=== PATIENT | female | born 1955 | race Hispanic/Latino ===

== ENCOUNTER 2017-01-29 13:17 | Emergency (ER) | payer MEDICARE ==
[2017-01-29 13:22] VITALS: RESP 18; TEMP 98.3; O2SAT 95; BMI 25.1
--- NOTE | 2017-01-29 14:10 | ED PDOC ---
Arrival/HPI - General Chief Complaint: Back Pain Time Seen by Provider: 01/29/17 13:26 Historian: Patient, Other (Service professional from custodial) - History of Present Illness Narrative History of Present Illness (Text): The pt is a 61yo female, brought to the Emergency department for evaluation after the pt was seen choking on a pretzel. Pt is accompanied by a service professional from her custodial who provides most of the history; she reports the pt was eating pretzel and states the pt choked on a piece after which she immediately spit it up. The service professional states she witnessed the event and denies the pt turning blue or having difficulty breathing after the episode. She reports the pt was able to eat and drink normally after the episode and at present is at her baseline. Currently, the pt is complaining of some lower back pain as she presented to the ED. County Director states that she did not complain of back pain previously. No injuires reported Pt offers no additional medical complaints. 01/29/17 21:11 Time/Duration: Prior to Arrival Past Medical History - Provider Review Nursing Documentation Reviewed: Yes - Cardiac Hx Cardiac Disorders: No - Pulmonary Hx Respiratory Disorders: No - Neurological Hx Neurological Disorder: No - HEENT Hx HEENT Disorder: No - Renal Hx Renal Disorder: No - Endocrine/Metabolic Hx Endocrine Disorders: No - Hematological/Oncological Hx Blood Disorders: No Hx Blood Transfusions: No Hx Blood Transfusion Reaction: No - Integumentary Hx Dermatological Disorder: No - Musculoskeletal/Rheumatological Hx Musculoskeletal Disorders: No - Gastrointestinal Hx Gastrointestinal Disorders: No - Genitourinary/Gynecological Hx Genitourinary Disorders: No - Psychiatric Hx Psychophysiologic Disorder: Yes Hx Depression: Yes Hx Emotional Abuse: No Hx Physical Abuse: No Hx Substance Use: No - Surgical History Hx Eye Surgery: Yes - Anesthesia Hx Anesthesia Reactions: No Hx Malignant Hyperthermia: No Family/Social History - Physician Review Nursing Documentation Reviewed: Yes Family/Social History: Unknown Family HX Smoking Status: Never Smoked Hx Alcohol Use: No Hx Substance Use: No Allergies/Home Meds Allergies/Adverse Reactions: Allergies No Known Allergies Allergy (Verified 01/29/17 13:33) Home Medications: Home Meds Medication Instructions Recorded Confirmed Divalproex [Depakote] 250 mg PO QAM 02/25/12 01/29/17 Divalproex [Depakote] 500 mg PO QPM 02/25/12 01/29/17 Multivitamin [Multi Vitamins] 1 tab PO DAILY 02/25/12 01/29/17 Benztropine [Cogentin] 1 mg PO DAILY 01/29/17 01/29/17 Citalopram Hydrobromide [Celexa] 40 mg PO DAILY 01/29/17 01/29/17 Ketoconazole [Ketoconazole] 1 appful TOP .WEEKLY 01/29/17 01/29/17 Methylprednisolone [Medrol] 200 mg PO HS 01/29/17 01/29/17 Review of Systems - Review of Systems Constitutional: Normal ENT: absent: Sore Throat, Rhinorrhea, Epistaxis, Sinus Congestion Respiratory: absent: SOB, Cough Cardiovascular: absent: Chest Pain, RIVERO Gastrointestinal: absent: Abdominal Pain Musculoskeletal: Back Pain. absent: Neck Pain Skin: Normal. absent: Rash Neurological: absent: Headache, Focal Weakness Physical Exam - Physical Exam Narrative Physical Exam (Text): Head: Atraumatic. Normocephalic. Eyes: PERRL. EOMI. Conjunctivae are not pale. ENT: Mucous membranes are moist and intact. Oropharynx is clear and symmetric. No lacerations or edema noted. No drooling. No stridor. Neck: Supple. Full ROM. No JVD. No lymphadenopathy. No masses palpated. No crepitus. Cardiovascular: Regular rate. Regular rhythm. No murmurs, rubs, or gallops. Distal pulses are 2+ and symmetric. Pulmonary/Chest: No evidence of respiratory distress. Clear to auscultation bilaterally. No wheezing, rales or rhonchi. Back: No CVA tenderness. Extremities: Bilateral lower extremity edema. Skin: Skin is warm and dry. No petechiae. No purpura. Neurological: Alert, awake. Normal speech. No focal weakness. Psychiatric: At baseline mental status and behavior. Not agitated. History of form of MR reportedly in custodial. Vital Signs Reviewed: Yes Vital Signs Temp Pulse Resp BP Pulse Ox 01/29/17 14:20 78 18 117/65 95 01/29/17 13:21 98.3 F 80 18 115/69 95 Temperature: Afebrile Blood Pressure: Normal Respiratory Rate: Normal Appearance: Positive for: Well-Appearing, Non-Toxic, Comfortable Pain Distress: None Medical Decision Making ED Course and Treatment: Impression: 61yo female, brought for evaluation s/p an episode of choking which has resolved Plan: -- Choking episode has resolved. Witness describes no respiratory distress, states the pt immediately spit out the piece of pretzel she was choking on. On exam, pt with no distress. There is no history of aspiration or increased secretions. Patient has not had prior choking episodes. No cyanosis or respiratory distress described. -- Observe the pt for PO intake -- Reassess and disposition Progress Notes: Patient on re-evaluation now states no back pain. She has no oral lesions noted. No wheezing. No rhonchi. No history of choking episodes. Patient at this time is comfortable. With serial exams in ED she has remained asymptomatic. Denies any foreign body sensation or sore throat. No respiratory distress reported or observed in ED. 01/29/17 15:03 Pt observed in room and ate full meal without pain or discomfort. No pain, no stridor. Instructions provided to geochemistry teacher, informed to follow up immediately for any worsening or new symptoms. Discharge instructions provided directly to patient's geochemistry teacher from her custodial, at bedside. - Scribe Statement The provider has reviewed the documentation as recorded by the Abi Sims Provider Scribe Attestation: All medical record entries made by the Abi were at my direction and personally dictated by me. I have reviewed the chart and agree that the record accurately reflects my personal performance of the history, physical exam, medical decision making, and the department course for this patient. I have also personally directed, reviewed, and agree with the discharge instructions and disposition. Disposition/Present on Arrival - Present on Arrival Any Indicators Present on Arrival: No History of DVT/PE: No History of Uncontrolled Diabetes: No Urinary Catheter: No History of Decub. Ulcer: No History Surgical Site Infection Following: None - Disposition Have Diagnosis and Disposition been Completed?: Yes Diagnosis: Choking episode Disposition: HOME/ ROUTINE Disposition Time: 14:20 Patient Plan: Discharge Condition: GOOD Additional Instructions: Landy may return to her typical activities. For the next 24 hours, have patient on a softer diet. If she develops ANY symptoms, any bleeding, any sore throat, any cough, any shortness of breath, any chest pain, any change in behavior, any vomiting, any abdominal pain, ANY NEW SYMPTOMS, get rechecked immediately. Follow-up with her physician as needed. Referrals: PCP,NO [Primary Care Provider] - Follow up with primary Forms: [employer] (Hebrew)
[2017-01-29 14:20] VITALS: BP 117/65; PULSE 78
== END 2017-01-29 15:20 | disposition home or self-care (01) ==
LOC: ED 13:17
DX: R09.89 Other specified symptoms and signs involving the circulatory and respiratory systems (principal)

== ENCOUNTER 2018-08-10 18:22 | Inpatient (IN) | payer OTHER ==
[2018-08-10 18:53] VITALS: BMI 25.6
[2018-08-10] MEDS ORDERED: Sodium Chloride 0.9% 1,000 ML IV STA (18:57)
[2018-08-10 19:11] LABS: BASO # 0.01 K/mm3 (0.0-2.0); BASO % 0.1 % (0.0-3.0); EOS % 0.3 % (1.5-5.0); HEMOGLOBIN 11.8 g/dL (12.0-16.0); LYMPH # 0.6 (1.2-3.4); LYMPH % 8.2 % (22.0-35.0); MEAN CELL VOLUME 97.5 fl (80.0-105.0); MEAN CORPUSCULAR HEMOGLOBIN 33.4 pg (25.0-35.0); MEAN CORPUSCULAR HGB CONC 34.3 g/dl (31.0-37.0); MEAN PLATELET VOLUME 8.2 fl (7.0-11.0); MONO # 1.3 (0.1-0.6); MONO % 17.2 % (1.0-6.0); RBC 3.53 10^6/uL (3.5-6.1); RED CELL DISTRIBUTION WIDTH 12.2 % (11.5-14.5); WHITE BLOOD COUNT 7.8 10^3/uL (4.5-11.0)
[2018-08-10 19:12] LABS: VENOUS BLOOD GAS BASE EXCESS 9.7 mmol/L (0.0-2.0); VENOUS BLOOD GAS PO2 30 mm/Hg (30-55); VENOUS BLOOD PH 7.49 (7.32-7.43)
[2018-08-10 19:32] LABS: ALB/GLOB RATIO 1.1 (1.1-1.8); ALBUMIN 3.8 g/dL (3.0-4.8); ALT/SGPT 30 U/L (7-56); AST/SGOT 52 U/L (14-36); BLOOD UREA NITROGEN 19 mg/dL (7-21); CALCIUM 8.5 mg/dL (8.4-10.5); GFR NON-AFRICAN AMERICAN 56
[2018-08-10 19:34] LABS: INR 1.2; PARTIAL THROMBOPLASTIN TIME 34.5 Seconds (26.9-38.3); PROTHROMBIN TIME 13.3 SECONDS (9.4-12.5)
[2018-08-10 19:44] LABS: B-TYPE NATRIURETIC PEPTIDE 204 pg/mL (0-450); TROPONIN I < 0.01 ng/mL
[2018-08-10] MEDS ORDERED: levoFLOXacin 750 mg in D5W 750 MG/150 ML BAG IVPB STA (19:51)
--- NOTE | 2018-08-10 20:08 | ED PDOC ---
Arrival/HPI - General Chief Complaint: Dizziness/Lightheaded Time Seen by Provider: 08/10/18 18:37 - History of Present Illness Narrative History of Present Illness (Text): 08/10/18 20:04 62 yo female, hx of seizures, from detention, comes from detention for "change in mental status", and "not acting herself". caretake bedside notes worsening cough. no fevers noted at detention although pt is noted to be febrile in ed. in er, pt denies any complaints. Past Medical History - Cardiac Hx Cardiac Disorders: Yes Hx Hypertension: Yes - Pulmonary Hx Respiratory Disorders: No - Neurological Hx Neurological Disorder: No - HEENT Hx HEENT Disorder: No - Renal Hx Renal Disorder: No - Endocrine/Metabolic Hx Endocrine Disorders: No - Hematological/Oncological Hx Blood Disorders: No Hx Blood Transfusions: No Hx Blood Transfusion Reaction: No - Integumentary Hx Dermatological Disorder: No - Musculoskeletal/Rheumatological Hx Musculoskeletal Disorders: No - Gastrointestinal Hx Gastrointestinal Disorders: No - Genitourinary/Gynecological Hx Genitourinary Disorders: No - Psychiatric Hx Psychophysiologic Disorder: Yes Hx Schizophrenia: Yes Hx Substance Use: No Other/Comment: Developmentally delayed. - Surgical History Hx Eye Surgery: Yes Hx Tonsillectomy: Yes - Anesthesia Hx Anesthesia: Yes Hx Anesthesia Reactions: No Hx Malignant Hyperthermia: No Family/Social History Family/Social History: Unknown Family HX Smoking Status: Never Smoked Hx Alcohol Use: No Hx Substance Use: No Allergies/Home Meds Allergies/Adverse Reactions: Allergies No Known Allergies Allergy (Verified 08/11/18 12:40) Home Medications: Home Meds Medication Instructions Recorded Confirmed RX: Divalproex [Depakote DR 250 mg PO QAM 02/25/12 08/10/18 (*BID*)] RX: Divalproex [Depakote DR(*BID*)] 500 mg PO QPM 02/25/12 08/11/18 RX: Multivitamin [One Daily 1 tab PO DAILY 02/25/12 08/10/18 Multivitamin] RX: Benztropine [Cogentin] 1 mg PO DAILY 01/29/17 08/10/18 RX: Citalopram Hydrobromide 40 mg PO DAILY 01/29/17 08/10/18 [Celexa] RX: Ketoconazole 1 appful TOP .WEEKLY 01/29/17 08/11/18 RX: Hydrochlorothiazide [Microzide] 25 mg PO DAILY 08/10/18 08/10/18 RX: Clotrimazole 1% Cream 1 % TP BID 08/11/18 08/11/18 [Lotrimin 1%] RX: Fluconazole [Diflucan] 150 mg PO MON 08/11/18 08/11/18 RX: Fluocinonide 0.05% Cream 15 gm TOP BID 08/11/18 08/11/18 [Lidex 0.05% Cream] RX: Thioridazine HCl 200 mg PO HS 08/11/18 08/11/18 Review of Systems - Review of Systems Constitutional: Fevers Eyes: Normal ENT: Normal Respiratory: Cough Cardiovascular: Normal Gastrointestinal: Normal Genitourinary Female: Normal Musculoskeletal: Normal Skin: Normal Neurological: Normal Endocrine: Normal Hemo/Lymphatic: Normal Psychiatric: Normal Physical Exam Vital Signs Temp Pulse Resp BP Pulse Ox 08/10/18 18:55 100.8 F H 08/10/18 18:44 97.9 F 89 18 114/64 95 Temperature: Febrile Blood Pressure: Normal Pulse: Regular Respiratory Rate: Normal Appearance: Positive for: Well-Appearing, Non-Toxic, Comfortable Pain Distress: None Mental Status: Positive for: Alert and Oriented X 3 - Systems Exam Head: Present: Atraumatic, Normocephalic Pupils: Present: PERRL Extroacular Muscles: Present: EOMI Conjunctiva: Present: Normal Mouth: Present: Moist Mucous Membranes Nose (Internal): No: Normal Inspection, No Active Bleeding, Moist, Engorged, Edematous, Boggy, Clear Mucous, Rhinorrhea, Purulent Mucous, Septal Deviation, Septal Hematoma, Epistaxis, Other Neck: Present: Normal Range of Motion Respiratory/Chest: Present: Clear to Auscultation, Good Air Exchange. No: Respiratory Distress, Accessory Muscle Use Cardiovascular: Present: Regular Rate and Rhythm, Normal S1, S2. No: Murmurs Abdomen: No: Tenderness, Distention, Peritoneal Signs Back: Present: Normal Inspection Upper Extremity: Present: Normal Inspection. No: Cyanosis, Edema Lower Extremity: Present: Normal Inspection. No: Edema Neurological: Present: GCS=15, CN II-XII Intact, Speech Normal Skin: Present: Warm, Dry, Normal Color. No: Rashes Psychiatric: Present: Alert, Oriented x 3, Normal Insight, Normal Concentration Medical Decision Making ED Course and Treatment: 08/10/18 20:09 ro pna, sepsis, metabolic abnormality noted hyponatremia ivf initated. no wbc no la, cxr no focal infiltrate. 08/13/18 09:[address] paris. ua pending - Lab Interpretations Lab Results: pO2 30 mm/Hg (30-55) 08/10/18 19:00 VBG pH 7.49 (7.32-7.43) H 08/10/18 19:00 VBG pCO2 45.0 (40-60) 08/10/18 19:00 VBG HCO3 34.3 mmol/l (21-28) H 08/10/18 19:00 VBG Total CO2 35.7 mmol.L (22-28) H 08/10/18 19:00 VBG O2 Sat (Calc) 71.2 % (40-65) H 08/10/18 19:00 VBG Base Excess 9.7 mmol/L (0.0-2.0) H 08/10/18 19:00 VBG Potassium 3.9 mmol/L (3.6-5.2) 08/10/18 19:00 Sodium 128.0 mmol/L (132-148) L 08/10/18 19:00 Chloride 92.0 mmol/L (98-107) L 08/10/18 19:00 Glucose 113 mg/dl (65-105) H 08/10/18 19:00 Lactate 1.2 mmol/L (0.7-2.1) 08/10/18 19:00 FiO2 21.0 % 08/10/18 19:00 PT 13.3 SECONDS (9.4-12.5) H 08/10/18 19:20 INR 1.20 08/10/18 19:20 APTT 34.5 Seconds (26.9-38.3) 08/10/18 19:20 Troponin I < 0.01 ng/mL 08/10/18 19:22 NT-Pro-B Natriuret Pep 204 pg/mL (0-450) 08/10/18 19:22 Total Bilirubin 0.4 mg/dL (0.2-1.3) 08/10/18 19:22 AST 52 U/L (14-36) H 08/10/18 19:22 ALT 30 U/L (7-56) 08/10/18 19:22 Alkaline Phosphatase 80 U/L (38-126) 08/10/18 19:22 Total Protein 7.2 g/dL (5.8-8.3) 08/10/18 19:22 Albumin 3.8 g/dL (3.0-4.8) 08/10/18 19:22 Globulin 3.4 gm/dL 08/10/18 19:22 Albumin/Globulin Ratio 1.1 (1.1-1.8) 08/10/18 19:22 - RAD Interpretation Radiology Orders: 08/10/18 18:49 CHEST PORTABLE [RAD] Stat - Medication Orders Current Medication Orders: Levofloxacin/Dextrose (Levaquin 750mg) 750 mg in 150 mls @ 100 mls/hr IVPB STAT STA; Protocol Stop: 08/10/18 21:20 Discontinued Medications Acetaminophen (Tylenol 325mg Tab) 975 mg PO STAT STA Stop: 08/10/18 18:58 Sodium Chloride (Sodium Chloride 0.9%) 1,000 mls @ 999 mls/hr IV .Q1H1M STA Stop: 08/10/18 19:57 Disposition/Present on Arrival - Present on Arrival Any Indicators Present on Arrival: No History of DVT/PE: No History of Uncontrolled Diabetes: No Urinary Catheter: No History of Decub. Ulcer: No History Surgical Site Infection Following: None - Disposition Have Diagnosis and Disposition been Completed?: Yes Diagnosis: UTI (urinary tract infection), Hyponatremia Disposition: HOSPITALIZED Disposition Time: 14:00 Condition: STABLE
[2018-08-11] MEDS: Sodium Chloride 0.9% 1,000 ML IV SCH ×2 (00:08→11:50)
[2018-08-11 01:56] LABS: URINE BILIRUBIN NEGATIVE (NEGATIVE); URINE BLOOD MODERATE (NEGATIVE); URINE GLUCOSE (UA) NEGATIVE (NEGATIVE); URINE LEUKOCYTE ESTERASE TRACE Leu/uL (NEGATIVE); URINE PROTEIN NEGATIVE mg/dL (<30 mg/dL); URINE UROBILINOGEN 0.2 E.U./dL (<1 E.U./dL)
[2018-08-11 01:59] LABS: URINE APPEARANCE CLEAR (CLEAR); URINE COLOR YELLOW (YELLOW)
[2018-08-11 02:18] LABS: URINE EPITHELIAL CELLS 0 - 2 /hpf (0-5); URINE RBC 0 - 2 /hpf (0-2)
[2018-08-11 02:19] LABS: URINE BACTERIA MOD /hpf
--- NOTE | 2018-08-11 08:56 | RAD ---
Date of service: 08/10/2018 HISTORY: cough COMPARISON: No prior. FINDINGS: LUNGS: There are low lung volumes. There is mild pulmonary venous congestion PLEURA: No pleural effusions or pneumothorax. CARDIOVASCULAR: The heart is normal in size. No aortic atherosclerotic calcifications present. OSSEOUS STRUCTURES: Within normal limits for the patient's age. VISUALIZED UPPER ABDOMEN: Normal. OTHER FINDINGS: None. IMPRESSION: Low lung volumes may be related to poor inspiratory effort. Mild pulmonary venous congestion.
[2018-08-11] MEDS: Divalproex 250 mg DR (BID formulation) PO SCH (10:26)
--- NOTE | 2018-08-11 10:27 | CP.PCM.CON ---
<Branden Velasquez - Last Filed: 08/11/18 12:26> History of Present Illness - History of Present Illness History of Present Illness: ID Consult Note 62 year old female with past medical history of seizure and HTN presents to the hospital for presyncopal episode. Patient is with home tax compliance manager who provides medical history. Patient was talking and became dizzy, home service demonstrator caught her before she fell. Patient also displayed labored breathing during this time and home tax compliance manager called EMS. Patient states she currently does not have any complaints, although she is a poor historian. Patient does attend adult day care during the day. Denies chest pain, shortness of breath, nausea, vomiting, d iarrhea, fever, chills, body aches, dysuria, numbness, tingling. Medical Hx: As above Surgical Hx: Denies Family Hx: CAD, gastric cancer Social Hx: Denies alcohol, tobacco, and illicit drug use Medication: Reviewed, as per MAR Allergies: NKDA Review of Systems - Review of Systems Review of Systems: 12 point ROS as per HPI, otherwise negative Past Patient History - Past Medical History & Family History Past Medical History?: Yes - Past Social History Smoking Status: Never Smoked - CARDIAC Hx Cardiac Disorders: Yes Hx Hypertension: Yes - PULMONARY Hx Respiratory Disorders: No - NEUROLOGICAL Hx Neurological Disorder: No - HEENT Hx HEENT Problems: No - RENAL Hx Chronic Kidney Disease: No - ENDOCRINE/METABOLIC Hx Endocrine Disorders: No - HEMATOLOGICAL/ONCOLOGICAL Hx Blood Disorders: No Hx Blood Transfusions: No Hx Blood Transfusion Reaction: No - INTEGUMENTARY Hx Dermatological Problems: No - MUSCULOSKELETAL/RHEUMATOLOGICAL Hx Musculoskeletal Disorders: No - GASTROINTESTINAL Hx Gastrointestinal Disorders: No - GENITOURINARY/GYNECOLOGICAL Hx Genitourinary Disorders: No - PSYCHIATRIC Hx Psychophysiologic Disorder: Yes Hx Schizophrenia: Yes Hx Substance Use: No Other/Comment: Developmentally delayed. - SURGICAL HISTORY Hx Eye Surgery: Yes Hx Tonsillectomy: Yes - ANESTHESIA Hx Anesthesia: Yes Hx Anesthesia Reactions: No Hx Malignant Hyperthermia: No Meds Allergies/Adverse Reactions: Allergies Allergy/AdvReac Type Severity Reaction Status Date / Time No Known Allergies Allergy Verified 08/11/18 12:40 - Medications Medications: Current Medications Benztropine Mesylate (Cogentin) 1 mg PO DAILY [facility] Citalopram Hydrobromide (Celexa) 40 mg PO DAILY [facility] Divalproex Sodium (Depakote Dr (*Bid*)) 250 mg PO QAM [facility]; Protocol Divalproex Sodium (Depakote Dr(*Bid*)) 500 mg PO QPM [facility] Hydrochlorothiazide (Hydrodiuril) 25 mg PO DAILY [facility] Sodium Chloride (Sodium Chloride 0.9%) 1,000 mls @ 100 mls/hr IV .Q10H [facility] Last Admin: 08/11/18 00:08 Dose: 100 mls/hr Physical Exam - Constitutional Appears: Non-toxic, No Acute Distress - Head Exam Head Exam: ATRAUMATIC, NORMAL INSPECTION, NORMOCEPHALIC - ENT Exam ENT Exam: Mucous Membranes Moist - Respiratory Exam Respiratory Exam: Clear to Auscultation Bilateral, NORMAL BREATHING PATTERN - Cardiovascular Exam Cardiovascular Exam: RRR, +S1, +S2 - GI/Abdominal Exam GI & Abdominal Exam: Normal Bowel Sounds, Soft. absent: Tenderness - Extremities Exam Extremities exam: Negative for: pedal edema - Neurological Exam Neurological exam: Alert - Psychiatric Exam Psychiatric exam: Normal Affect, Normal Mood - Skin Skin Exam: Dry, Intact, Warm Results - Vital Signs Recent Vital Signs: Last Vital Signs Temp 97.7 F 08/11/18 10:05 Pulse 88 08/11/18 06:35 Resp 20 08/11/18 06:35 BP 120/74 08/11/18 06:35 Pulse Ox 95 08/11/18 06:35 - Labs Result Diagrams: 08/10/18 18:48 08/10/18 19:22 Labs: Laboratory Results - last 24 hr 08/10/18 08/10/18 08/10/18 18:48 19:00 19:20 WBC 7.8 RBC 3.53 Hgb 11.8 L Hct 34.4 L MCV 97.5 MCH 33.4 MCHC 34.3 RDW 12.2 Plt Count 224 MPV 8.2 Neut % (Auto) 74.2 H Lymph % (Auto) 8.2 L [place] % (Auto) 17.2 H Eos % (Auto) 0.3 L Baso % (Auto) 0.1 Lymph # (Auto) 0.6 L [place] # (Auto) 1.3 H Eos # (Auto) 0.0 Baso # (Auto) 0.01 Absolute Neuts (auto) 5.80 PT 13.3 H INR 1.20 APTT 34.5 pO2 30 VBG pH 7.49 H VBG pCO2 45.0 VBG HCO3 34.3 H VBG Total CO2 35.7 H VBG O2 Sat (Calc) 71.2 H VBG Base Excess 9.7 H VBG Potassium 3.9 Sodium 128.0 L Chloride 92.0 L Glucose 113 H Lactate 1.2 FiO2 21.0 Potassium Carbon Dioxide Anion Gap BUN Creatinine Est GFR ( Amer) Est GFR (Non-Af Amer) Random Glucose Calcium Magnesium Total Bilirubin AST ALT Alkaline Phosphatase Lactate Dehydrogenase Total Creatine Kinase Troponin I NT-Pro-B Natriuret Pep Total Protein Albumin Globulin Albumin/Globulin Ratio Venous Blood Potassium 3.9 Urine Color Urine Appearance Urine pH Ur Specific [place] Urine Protein Urine Glucose (UA) Urine Ketones Urine Blood Urine Nitrate Urine Bilirubin Urine Urobilinogen Ur Leukocyte Esterase Urine RBC Urine WBC Ur Epithelial Cells Urine Bacteria Valproic Acid Influenza Typ A,B (EIA) 08/10/18 08/10/18 08/10/18 19:22 19:22 19:22 WBC RBC Hgb Hct MCV MCH MCHC RDW Plt Count MPV Neut % (Auto) Lymph % (Auto) [place] % (Auto) Eos % (Auto) Baso % (Auto) Lymph # (Auto) [place] # (Auto) Eos # (Auto) Baso # (Auto) Absolute Neuts (auto) PT INR APTT pO2 VBG pH VBG pCO2 VBG HCO3 VBG Total CO2 VBG O2 Sat (Calc) VBG Base Excess VBG Potassium Sodium 128 L Chloride 91 L Glucose Lactate FiO2 Potassium 3.9 Carbon Dioxide 31 Anion Gap 11 BUN 19 Creatinine 1.0 Est GFR ( Amer) > 60 Est GFR (Non-Af Amer) 56 Random Glucose 111 H Calcium 8.5 Magnesium 2.0 Total Bilirubin 0.4 AST 52 H ALT 30 Alkaline Phosphatase 80 Lactate Dehydrogenase 586 Total Creatine Kinase 165 Troponin I < 0.01 NT-Pro-B Natriuret Pep 204 Total Protein 7.2 Albumin 3.8 Globulin 3.4 Albumin/Globulin Ratio 1.1 Venous Blood Potassium Urine Color Urine Appearance Urine pH Ur Specific [place] Urine Protein Urine Glucose (UA) Urine Ketones Urine Blood Urine Nitrate Urine Bilirubin Urine Urobilinogen Ur Leukocyte Esterase Urine RBC Urine WBC Ur Epithelial Cells Urine Bacteria Valproic Acid 47 L Influenza Typ A,B (EIA) Negative for flu a/b 08/11/18 01:15 WBC RBC Hgb Hct MCV MCH MCHC RDW Plt Count MPV Neut % (Auto) Lymph % (Auto) [place] % (Auto) Eos % (Auto) Baso % (Auto) Lymph # (Auto) [place] # (Auto) Eos # (Auto) Baso # (Auto) Absolute Neuts (auto) PT INR APTT pO2 VBG pH VBG pCO2 VBG HCO3 VBG Total CO2 VBG O2 Sat (Calc) VBG Base Excess VBG Potassium Sodium Chloride Glucose Lactate FiO2 Potassium Carbon Dioxide Anion Gap BUN Creatinine Est GFR ( Amer) Est GFR (Non-Af Amer) Random Glucose Calcium Magnesium Total Bilirubin AST ALT Alkaline Phosphatase Lactate Dehydrogenase Total Creatine Kinase Troponin I NT-Pro-B Natriuret Pep Total Protein Albumin Globulin Albumin/Globulin Ratio Venous Blood Potassium Urine Color Yellow Urine Appearance Clear Urine pH 7.0 Ur Specific [place] 1.020 Urine Protein Negative Urine Glucose (UA) Negative Urine Ketones Negative Urine Blood Moderate H Urine Nitrate Positive H Urine Bilirubin Negative Urine Urobilinogen 0.2 Ur Leukocyte Esterase Trace H Urine RBC 0 - 2 Urine WBC 1 - 3 Ur Epithelial Cells 0 - 2 Urine Bacteria Mod Valproic Acid Influenza Typ A,B (EIA) Assessment & Plan - Assessment and Plan (Free Text) Plan: UTI Hyponatremia Hx of UTI with Citrobacter diversus Hx of HTN Hx of seizures Plan Currently Afebrile, no leukocytosis Chest x-ray reviewed Will start Rocephin Blood and urine cultures pending Continue to monitor Ron, PGY-3 <Severino Hess S - Last Filed: 08/11/18 18:21> Meds - Medications Medications: Current Medications Benztropine Mesylate (Cogentin) 1 mg PO DAILY [facility] Last Admin: 08/11/18 10:26 Dose: 1 mg Citalopram Hydrobromide (Celexa) 40 mg PO DAILY [facility] Last Admin: 08/11/18 10:26 Dose: 40 mg Divalproex Sodium (Depakote Dr (*Bid*)) 250 mg PO QAM [facility]; Protocol Last Admin: 08/11/18 10:26 Dose: 250 mg Divalproex Sodium (Depakote Dr(*Bid*)) 500 mg PO QPM [facility] Last Admin: 08/11/18 18:09 Dose: 500 mg Sodium Chloride (Sodium Chloride 0.9%) 1,000 mls @ 100 mls/hr IV .Q10H [facility] Last Admin: 08/11/18 11:50 Dose: 100 mls/hr Ceftriaxone Sodium (Rocephin 1 Gram Ivpb) 1 gm in 100 mls @ 100 mls/hr IVPB DAILY [facility]; Protocol Last Admin: 08/11/18 14:45 Dose: 100 mls/hr Results - Vital Signs Recent Vital Signs: Last Vital Signs Temp 98.1 F 08/11/18 16:02 Pulse 88 08/11/18 16:02 Resp 18 08/11/18 16:02 BP 107/59 L 08/11/18 16:02 Pulse Ox 95 08/11/18 16:02 - Labs Result Diagrams: 08/10/18 18:48 08/10/18 19:22 Labs: Laboratory Results - last 24 hr 08/10/18 08/10/18 08/10/18 18:48 19:00 19:20 WBC 7.8 RBC 3.53 Hgb 11.8 L Hct 34.4 L MCV 97.5 MCH 33.4 MCHC 34.3 RDW 12.2 Plt Count 224 MPV 8.2 Neut % (Auto) 74.2 H Lymph % (Auto) 8.2 L [place] % (Auto) 17.2 H Eos % (Auto) 0.3 L Baso % (Auto) 0.1 Lymph # (Auto) 0.6 L [place] # (Auto) 1.3 H Eos # (Auto) 0.0 Baso # (Auto) 0.01 Absolute Neuts (auto) 5.80 PT 13.3 H INR 1.20 APTT 34.5 pO2 30 VBG pH 7.49 H VBG pCO2 45.0 VBG HCO3 34.3 H VBG Total CO2 35.7 H VBG O2 Sat (Calc) 71.2 H VBG Base Excess 9.7 H VBG Potassium 3.9 Sodium 128.0 L Chloride 92.0 L Glucose 113 H Lactate 1.2 FiO2 21.0 Potassium Carbon Dioxide Anion Gap BUN Creatinine Est GFR ( Amer) Est GFR (Non-Af Amer) Random Glucose Calcium Magnesium Total Bilirubin AST ALT Alkaline Phosphatase Lactate Dehydrogenase Total Creatine Kinase Troponin I NT-Pro-B Natriuret Pep Total Protein Albumin Globulin Albumin/Globulin Ratio Procalcitonin Venous Blood Potassium 3.9 Urine Color Urine Appearance Urine pH Ur Specific [place] Urine Protein Urine Glucose (UA) Urine Ketones Urine Blood Urine Nitrate Urine Bilirubin Urine Urobilinogen Ur Leukocyte Esterase Urine RBC Urine WBC Ur Epithelial Cells Urine Bacteria Urine Osmolality Ur Random Sodium Valproic Acid Influenza Typ A,B (EIA) 08/10/18 08/10/18 08/10/18 19:22 19:22 19:22 WBC RBC Hgb Hct MCV MCH MCHC RDW Plt Count MPV Neut % (Auto) Lymph % (Auto) [place] % (Auto) Eos % (Auto) Baso % (Auto) Lymph # (Auto) [place] # (Auto) Eos # (Auto) Baso # (Auto) Absolute Neuts (auto) PT INR APTT pO2 VBG pH VBG pCO2 VBG HCO3 VBG Total CO2 VBG O2 Sat (Calc) VBG Base Excess VBG Potassium Sodium 128 L Chloride 91 L Glucose Lactate FiO2 Potassium 3.9 Carbon Dioxide 31 Anion Gap 11 BUN 19 Creatinine 1.0 Est GFR ( Amer) > 60 Est GFR (Non-Af Amer) 56 Random Glucose 111 H Calcium 8.5 Magnesium 2.0 Total Bilirubin 0.4 AST 52 H ALT 30 Alkaline Phosphatase 80 Lactate Dehydrogenase 586 Total Creatine Kinase 165 Troponin I < 0.01 NT-Pro-B Natriuret Pep 204 Total Protein 7.2 Albumin 3.8 Globulin 3.4 Albumin/Globulin Ratio 1.1 Procalcitonin Venous Blood Potassium Urine Color Urine Appearance Urine pH Ur Specific [place] Urine Protein Urine Glucose (UA) Urine Ketones Urine Blood Urine Nitrate Urine Bilirubin Urine Urobilinogen Ur Leukocyte Esterase Urine RBC Urine WBC Ur Epithelial Cells Urine Bacteria Urine Osmolality Ur Random Sodium Valproic Acid 47 L Influenza Typ A,B (EIA) Negative for flu a/b 08/10/18 08/11/18 08/11/18 20:00 01:15 14:30 WBC RBC Hgb Hct MCV MCH MCHC RDW Plt Count MPV Neut % (Auto) Lymph % (Auto) [place] % (Auto) Eos % (Auto) Baso % (Auto) Lymph # (Auto) [place] # (Auto) Eos # (Auto) Baso # (Auto) Absolute Neuts (auto) PT INR APTT pO2 VBG pH VBG pCO2 VBG HCO3 VBG Total CO2 VBG O2 Sat (Calc) VBG Base Excess VBG Potassium Sodium Chloride Glucose Lactate FiO2 Potassium Carbon Dioxide Anion Gap BUN Creatinine Est GFR ( Amer) Est GFR (Non-Af Amer) Random Glucose Calcium Magnesium Total Bilirubin AST ALT Alkaline Phosphatase Lactate Dehydrogenase Total Creatine Kinase Troponin I NT-Pro-B Natriuret Pep Total Protein Albumin Globulin Albumin/Globulin Ratio Procalcitonin < 0.05 L Venous Blood Potassium Urine Color Yellow Urine Appearance Clear Urine pH 7.0 Ur Specific [place] 1.020 Urine Protein Negative Urine Glucose (UA) Negative Urine Ketones Negative Urine Blood Moderate H Urine Nitrate Positive H Urine Bilirubin Negative Urine Urobilinogen 0.2 Ur Leukocyte Esterase Trace H Urine RBC 0 - 2 Urine WBC 1 - 3 Ur Epithelial Cells 0 - 2 Urine Bacteria Mod Urine Osmolality 377 Ur Random Sodium 148 Valproic Acid Influenza Typ A,B (EIA) Assessment & Plan - Assessment and Plan (Free Text) Plan: Infectious diseases Attending Physician Attestation Patient seen and examined, discussed with medical affairs manager. I have reviewed the patient's history of present illness, past medical, social, personal and family histories, pertinent physical exam findings, course so far in this hospital admission, pertinent laboratory and imaging results. I agree with the above findings, assessment and plan. In addition, started Rocephin for probable UTI in this patient with pre-syncopal episode. Will follow up urine cx and monitor clinically.
[2018-08-11] MEDS: cefTRIAXone 1 gm 1 GM/100 ML BAG IVPB SCH (14:45)
--- NOTE | 2018-08-11 15:12 | CP.PCM.CON ---
History of Present Illness - History of Present Illness History of Present Illness: Nephrology Consultation Note: Assessment: Stable Hyponatremia likely due to hctz and contribution by valproate HTN seizure ? UTI AMS Plan No acute need for renal replacement therapy at this time. Hypertension control with meds as ordered. Maintain hemodynamics stable. Avoid hypotension. Patient not on ACEI/ARB due to low BP. stop thiazide diuretics Monitor Input/Output, daily weights and renal function with basic metabolic panel continue with IVF avcoid correction in serum Na >6-8 meq/24 hrs. no need for samsca or hypertonic saline at this time okay to continue with anti-epileptics from renal perspective at this time Check urine Na, osmo and creat Dose meds/antibiotics for GFR>60 Glycemic control Further work up/management as per primary team Thanks for allowing me to participate in care of your patient. Will follow neena whitney with you. Please call if any Qs. had d/w team Dr Souleymane Reed Office: [phone] Chief Complaint; I am ok Reason for consult: hyponatremia HPI: Pt is a 62 F with hx of hypertension (years) seizure lives in shelter presented with complaints of not feeling well, change in behaviors and mental status hence brought to ER Denies OTC/herbal meds or NSAIDs No recent iodinated contrast exposure. Noted obvious episodes of low BP. feels better now ROS: Cardiovascular: No chest pain. Pulmonary: No shortness of breath Gastrointestinal: denies abdominal pain No nausea. No vomiting. Genitourinary: No pain while urinating. Denies blood in urine. All other negative except as mentioned in HPI Physical Examination: General Appearance: Comfortable, in no acute respiratory distress, co-operative . Vitals reviewed and noted as below Head; Atraumatic, normocephalic ENT: no ulcers no thrush. Tongue is midline. Oropharynx: no rash or ulcers. EYES: Pupils are equal, round and reactive to light accommodation. Eye muscles and extraocular movement intact. Sclera is anicteric. Neck; supple no lymphadenopathy, no thyromegaly or bruit Lungs: Normal respiratory rate/effort. Breath sounds bilateral equal and clear Heart: Normal rate. s1s2 normal. No rub or gallop. Extremities: no edema. No varicose veins Neurological: Patient is alert, awake and oriented to person, place and time. No focal deficit. Strength bilateral appropriate and equal Skin: Warm and dry. Normal turgor. No rash. Palpitation: Normal elasticity for age Abdomen: Abdomen is soft. Bowel sounds +. There is no abdominal tenderness, no guarding/rigidity no organomegaly Psych: limited insight and flat affect/mood MSK: no joint tenderness or swelling. Digits and nails normal, no deformity : kidney or bladder not palpable Labs/imaging reviewed. Past medical history, past surgical history, family history, social history, allergy reviewed and noted as below Family hx: no hx of CKD. Rest non-contributory Past Patient History - Past Medical History & Family History Past Medical History?: Yes - Past Social History Smoking Status: Never Smoked - CARDIAC Hx Cardiac Disorders: Yes Hx Hypertension: Yes - PULMONARY Hx Respiratory Disorders: No - NEUROLOGICAL Hx Neurological Disorder: No - HEENT Hx HEENT Problems: No - RENAL Hx Chronic Kidney Disease: No - ENDOCRINE/METABOLIC Hx Endocrine Disorders: No - HEMATOLOGICAL/ONCOLOGICAL Hx Blood Disorders: No Hx Blood Transfusions: No Hx Blood Transfusion Reaction: No - INTEGUMENTARY Hx Dermatological Problems: No - MUSCULOSKELETAL/RHEUMATOLOGICAL Hx Musculoskeletal Disorders: No - GASTROINTESTINAL Hx Gastrointestinal Disorders: No - GENITOURINARY/GYNECOLOGICAL Hx Genitourinary Disorders: No - PSYCHIATRIC Hx Psychophysiologic Disorder: Yes Hx Schizophrenia: Yes Hx Substance Use: No Other/Comment: Developmentally delayed. - SURGICAL HISTORY Hx Eye Surgery: Yes Hx Tonsillectomy: Yes - ANESTHESIA Hx Anesthesia: Yes Hx Anesthesia Reactions: No Hx Malignant Hyperthermia: No Meds Allergies/Adverse Reactions: Allergies Allergy/AdvReac Type Severity Reaction Status Date / Time No Known Allergies Allergy Verified 08/11/18 12:40 - Medications Medications: Current Medications Benztropine Mesylate (Cogentin) 1 mg PO DAILY [facility] Last Admin: 08/11/18 10:26 Dose: 1 mg Citalopram Hydrobromide (Celexa) 40 mg PO DAILY [facility] Last Admin: 08/11/18 10:26 Dose: 40 mg Divalproex Sodium (Depakote Dr (*Bid*)) 250 mg PO QAM [facility]; Protocol Last Admin: 08/11/18 10:26 Dose: 250 mg Divalproex Sodium (Depakote Dr(*Bid*)) 500 mg PO QPM [facility] Sodium Chloride (Sodium Chloride 0.9%) 1,000 mls @ 100 mls/hr IV .Q10H [facility] Last Admin: 08/11/18 00:08 Dose: 100 mls/hr Ceftriaxone Sodium (Rocephin 1 Gram Ivpb) 1 gm in 100 mls @ 100 mls/hr IVPB DAILY [facility]; Protocol Last Admin: 08/11/18 14:45 Dose: 100 mls/hr Results - Vital Signs Recent Vital Signs: Last Vital Signs Temp 98 F 08/11/18 15:07 Pulse 84 08/11/18 15:07 Resp 19 08/11/18 15:07 BP 105/59 L 08/11/18 15:07 Pulse Ox 95 08/11/18 15:07 - Labs Result Diagrams: 08/10/18 18:48 08/10/18 19:22 Labs: Laboratory Results - last 24 hr 08/10/18 08/10/18 08/10/18 18:48 19:00 19:20 WBC 7.8 RBC 3.53 Hgb 11.8 L Hct 34.4 L MCV 97.5 MCH 33.4 MCHC 34.3 RDW 12.2 Plt Count 224 MPV 8.2 Neut % (Auto) 74.2 H Lymph % (Auto) 8.2 L [place] % (Auto) 17.2 H Eos % (Auto) 0.3 L Baso % (Auto) 0.1 Lymph # (Auto) 0.6 L [place] # (Auto) 1.3 H Eos # (Auto) 0.0 Baso # (Auto) 0.01 Absolute Neuts (auto) 5.80 PT 13.3 H INR 1.20 APTT 34.5 pO2 30 VBG pH 7.49 H VBG pCO2 45.0 VBG HCO3 34.3 H VBG Total CO2 35.7 H VBG O2 Sat (Calc) 71.2 H VBG Base Excess 9.7 H VBG Potassium 3.9 Sodium 128.0 L Chloride 92.0 L Glucose 113 H Lactate 1.2 FiO2 21.0 Potassium Carbon Dioxide Anion Gap BUN Creatinine Est GFR ( Amer) Est GFR (Non-Af Amer) Random Glucose Calcium Magnesium Total Bilirubin AST ALT Alkaline Phosphatase Lactate Dehydrogenase Total Creatine Kinase Troponin I NT-Pro-B Natriuret Pep Total Protein Albumin Globulin Albumin/Globulin Ratio Procalcitonin Venous Blood Potassium 3.9 Urine Color Urine Appearance Urine pH Ur Specific [place] Urine Protein Urine Glucose (UA) Urine Ketones Urine Blood Urine Nitrate Urine Bilirubin Urine Urobilinogen Ur Leukocyte Esterase Urine RBC Urine WBC Ur Epithelial Cells Urine Bacteria Valproic Acid Influenza Typ A,B (EIA) 08/10/18 08/10/18 08/10/18 19:22 19:22 19:22 WBC RBC Hgb Hct MCV MCH MCHC RDW Plt Count MPV Neut % (Auto) Lymph % (Auto) [place] % (Auto) Eos % (Auto) Baso % (Auto) Lymph # (Auto) [place] # (Auto) Eos # (Auto) Baso # (Auto) Absolute Neuts (auto) PT INR APTT pO2 VBG pH VBG pCO2 VBG HCO3 VBG Total CO2 VBG O2 Sat (Calc) VBG Base Excess VBG Potassium Sodium 128 L Chloride 91 L Glucose Lactate FiO2 Potassium 3.9 Carbon Dioxide 31 Anion Gap 11 BUN 19 Creatinine 1.0 Est GFR ( Amer) > 60 Est GFR (Non-Af Amer) 56 Random Glucose 111 H Calcium 8.5 Magnesium 2.0 Total Bilirubin 0.4 AST 52 H ALT 30 Alkaline Phosphatase 80 Lactate Dehydrogenase 586 Total Creatine Kinase 165 Troponin I < 0.01 NT-Pro-B Natriuret Pep 204 Total Protein 7.2 Albumin 3.8 Globulin 3.4 Albumin/Globulin Ratio 1.1 Procalcitonin Venous Blood Potassium Urine Color Urine Appearance Urine pH Ur Specific [place] Urine Protein Urine Glucose (UA) Urine Ketones Urine Blood Urine Nitrate Urine Bilirubin Urine Urobilinogen Ur Leukocyte Esterase Urine RBC Urine WBC Ur Epithelial Cells Urine Bacteria Valproic Acid 47 L Influenza Typ A,B (EIA) Negative for flu a/b 08/10/18 08/11/18 20:00 01:15 WBC RBC Hgb Hct MCV MCH MCHC RDW Plt Count MPV Neut % (Auto) Lymph % (Auto) [place] % (Auto) Eos % (Auto) Baso % (Auto) Lymph # (Auto) [place] # (Auto) Eos # (Auto) Baso # (Auto) Absolute Neuts (auto) PT INR APTT pO2 VBG pH VBG pCO2 VBG HCO3 VBG Total CO2 VBG O2 Sat (Calc) VBG Base Excess VBG Potassium Sodium Chloride Glucose Lactate FiO2 Potassium Carbon Dioxide Anion Gap BUN Creatinine Est GFR ( Amer) Est GFR (Non-Af Amer) Random Glucose Calcium Magnesium Total Bilirubin AST ALT Alkaline Phosphatase Lactate Dehydrogenase Total Creatine Kinase Troponin I NT-Pro-B Natriuret Pep Total Protein Albumin Globulin Albumin/Globulin Ratio Procalcitonin < 0.05 L Venous Blood Potassium Urine Color Yellow Urine Appearance Clear Urine pH 7.0 Ur Specific [place] 1.020 Urine Protein Negative Urine Glucose (UA) Negative Urine Ketones Negative Urine Blood Moderate H Urine Nitrate Positive H Urine Bilirubin Negative Urine Urobilinogen 0.2 Ur Leukocyte Esterase Trace H Urine RBC 0 - 2 Urine WBC 1 - 3 Ur Epithelial Cells 0 - 2 Urine Bacteria Mod Valproic Acid Influenza Typ A,B (EIA)
[2018-08-11 15:59] LABS: OSMOLALITY,URINE 377 mosm/kg (300-1000)
[2018-08-11] MEDS ORDERED: Divalproex 500 mg DR(BID formulation) PO SCH (18:00)
[2018-08-11] MEDS ORDERED: Pneumococcal 23-Valent Vaccine IM ONE (18:33)
[2018-08-11] MEDS ORDERED: Influenza Vaccine 60 mcg/0.5 mL SYR (4YR UP) IM ONE (18:33)
--- NOTE | 2018-08-11 19:05 | CARD ---
APPROVED REPORT Date of service: 08/10/2018 EKG Measurement Heart [id number] <Conclusion> Normal sinus rhythm Possible Left atrial enlargement Left axis deviation Abnormal ECG
--- NOTE | 2018-08-11 20:35 | HP ---
DATE OF EXAM: 08/11/2018 HISTORY OF PRESENT ILLNESS: I was called down to the emergency room to admit her. I have known her for a few years now. She is a 62-year-old, developmentally disabled lady who lives in a snf comes in not acting herself. She is kind of wobbly, walking in the halls, worsening cough, just feeling very weak, they have to catch her, she almost fell, and she was just little bit off. PAST MEDICAL HISTORY: She has a past medical history of hypertension, schizophrenia, and developmentally delayed. PAST SURGICAL HISTORY: She has had eye surgery and tonsillectomy. FAMILY HISTORY: Unknown family history. SOCIAL HISTORY: Nonsmoker. No drinking. No drugs. ALLERGIES: NO KNOWN DRUG ALLERGIES. MEDICATIONS: She takes Depakote, vitamins, Cogentin, Celexa, ketoconazole, and Microzide. REVIEW OF SYSTEMS: No fevers. No vision changes. No hearing changes. There is a cough. No chest pain or palpitations. No nausea, vomiting, constipation, diarrhea, questionably irritation with urination. No back pain or neck pain. Skin for I could tell is okay. No rashes or ulcers PHYSICAL EXAMINATION: VITAL SIGNS: She has a 100.8 temperature, 89 pulse, 18 respiratory rate, 114/64 blood pressure, and 95% O2 sat. GENERAL: She is well-appearing, comfortable on IV fluids right now. Alert and oriented x3. HEENT: Head is atraumatic and normocephalic. Extraocular muscles are intact. Pupils equal and reactive to light. Throat is moist. NECK: Supple. HEART: Regular rate. Normal S1 and S2. LUNGS: Decreased breath sounds, but clear to auscultation. ABDOMEN: Soft and nontender. Positive bowel sounds. No guarding. No rebound. No CVA tenderness. EXTREMITIES: Have no edema. NEUROLOGIC: GCS is 15. Cranial nerves II through XII grossly intact. Speech is normal. Alert and oriented x3. SKIN: Warm and dry. No apparent rashes appreciated. LYMPHS: Thyroid midline. No palpable appreciable lymphadenopathy. LABORATORY DATA: She had a bunch of tests done in the ER. Chest x-ray was clear. Negative for the flu. She has got a urine that showed moderate bacteria, moderate blood, and positive nitrites. She has 128 sodium, potassium 3.9, BUN 19, creatinine is 1, GFR is 56, sugar is 111, calcium is 8.5, and magnesium is 2. Total bili is 0.4, AST is 52, ALT is 30 and alk phos is 80. Lactate dehydrogenase is 586. Total creatine kinase is 165. Troponin I is less than 0.01. BNP is 204, total protein 7.2, albumin is 3.8, and globulin 3.4. Lactate is 1.2. INR is 1.2. White count 7.8, hemoglobin 11.8, hematocrit 34.4 with platelets 224. ASSESSMENT AND PLAN: She has a temperature of 100.8. She has a positive urinary tract infection and the urinalysis and she has a sodium low 128. She will have a consult with Infectious Disease and Renal. She will be on IV fluids and IV antibiotics. We will check her labs tomorrow. I hopefully she will improve. Virgilio Buchanan DO MTDD
[2018-08-12 07:38] LABS: HEMOGLOBIN 11.5 g/dL (12.0-16.0); MEAN CORPUSCULAR HEMOGLOBIN 32.6 pg (25.0-35.0); MEAN CORPUSCULAR HGB CONC 33.2 g/dl (31.0-37.0); MEAN PLATELET VOLUME 8.2 fl (7.0-11.0); RBC 3.53 10^6/uL (3.5-6.1); RED CELL DISTRIBUTION WIDTH 12.3 % (11.5-14.5)
[2018-08-12 07:53] LABS: ALBUMIN 2.9 g/dL (3.0-4.8); ALT/SGPT 43 U/L (7-56); AST/SGOT 51 U/L (14-36); BLOOD UREA NITROGEN 8 mg/dL (7-21); CALCIUM 8.1 mg/dL (8.4-10.5); GFR NON-AFRICAN AMERICAN > 60
[2018-08-12 08:26] VITALS: RESP 17; TEMP 98.1
[2018-08-12] MEDS: Divalproex 250 mg DR (BID formulation) PO SCH (09:55)
[2018-08-12] MEDS: cefTRIAXone 1 gm 1 GM/100 ML BAG IVPB SCH (09:55)
[2018-08-12 14:26] VITALS: BP 100/65; PULSE 69; O2SAT 96
--- NOTE | 2018-08-12 14:26 | CP.PCM.PN ---
<Branden Velasquez - Last Filed: 08/12/18 14:23> Subjective - Date & Time of Evaluation Date of Evaluation: 08/12/18 Time of Evaluation: 10:20 - Subjective Subjective: ID Progress Note Patient seen and examined. Patient alert with no complaints. No fevers. Objective - Vital Signs/Intake and Output Vital Signs (last 24 hours): Temp Pulse Resp BP Pulse Ox 98.1 F 73 17 106/62 95 08/12/18 06:00 08/12/18 06:00 08/12/18 06:00 08/12/18 06:00 08/12/18 06:00 Intake and Output: 08/12/18 08/12/18 06:59 18:59 Intake Total 540 Balance 540 - Medications Medications: Current Medications Benztropine Mesylate (Cogentin) 1 mg PO DAILY [facility] Last Admin: 08/12/18 09:55 Dose: 1 mg Citalopram Hydrobromide (Celexa) 40 mg PO DAILY [facility] Last Admin: 08/12/18 09:55 Dose: 40 mg Divalproex Sodium (Depakote Dr (*Bid*)) 250 mg PO QAM [facility]; Protocol Last Admin: 08/12/18 09:55 Dose: 250 mg Divalproex Sodium (Depakote Dr(*Bid*)) 500 mg PO QPM [facility] Last Admin: 08/11/18 18:09 Dose: 500 mg Sodium Chloride (Sodium Chloride 0.9%) 1,000 mls @ 100 mls/hr IV .Q10H [facility] Last Admin: 08/11/18 11:50 Dose: 100 mls/hr Ceftriaxone Sodium (Rocephin 1 Gram Ivpb) 1 gm in 100 mls @ 100 mls/hr IVPB DAILY [facility]; Protocol Last Admin: 08/12/18 09:55 Dose: 100 mls/hr - Labs Labs: 08/12/18 07:25 08/12/18 07:25 PT 13.3 SECONDS (9.4-12.5) H 08/10/18 19:20 INR 1.20 08/10/18 19:20 APTT 34.5 Seconds (26.9-38.3) 08/10/18 19:20 - Constitutional Appears: Non-toxic, No Acute Distress - Head Exam Head Exam: ATRAUMATIC, NORMAL INSPECTION, NORMOCEPHALIC - ENT Exam ENT Exam: Mucous Membranes Moist - Respiratory Exam Respiratory Exam: Decreased Breath Sounds, NORMAL BREATHING PATTERN - Cardiovascular Exam Cardiovascular Exam: RRR, +S1, +S2 - GI/Abdominal Exam GI & Abdominal Exam: Soft, Normal Bowel Sounds. absent: Tenderness - Extremities Exam Extremities Exam: Normal Inspection. absent: Pedal Edema - Neurological Exam Neurological Exam: Alert, Awake, Oriented x3 - Psychiatric Exam Psychiatric exam: Normal Affect, Normal Mood - Skin Skin Exam: Intact, Normal Color, Warm Assessment and Plan - Assessment and Plan (Free Text) Plan: UTI Hyponatremia, resolved Hx of UTI with Citrobacter diversus Hx of HTN Hx of seizures Plan Afebrile, no leukocytosis Chest x-ray reviewed Continue Rocephin, day 2/3 Blood and urine cultures negative Continue to monitor Ron, PGY-3 <Severino Hess - Last Filed: 08/12/18 19:57> Objective - Vital Signs/Intake and Output Vital Signs (last 24 hours): Temp Pulse Resp BP Pulse Ox 98.1 F 69 17 100/65 96 08/12/18 14:25 08/12/18 14:25 08/12/18 06:00 08/12/18 14:25 08/12/18 14:25 - Labs Labs: 08/12/18 07:25 08/12/18 07:25 PT 13.3 SECONDS (9.4-12.5) H 08/10/18 19:20 INR 1.20 08/10/18 19:20 APTT 34.5 Seconds (26.9-38.3) 08/10/18 19:20 Assessment and Plan - Assessment and Plan (Free Text) Plan: Infectious diseases Attending Physician Attestation Patient seen and examined, discussed with certified medical transcriptionist. I have reviewed the patient's history of present illness, past medical, social, personal and family histories, pertinent physical exam findings, course so far in this hospital admission, pertinent laboratory and imaging results. I agree with the above findings, assessment and plan. In addition,on Rocephin day 2 for UTI, probably cystitis. Urine cx are negative but patient received Levaquin prior to the urine cx. Can switch to Levaquin for another 2-3 days, with outpatient follow up with PMD.
--- NOTE | 2018-08-12 18:13 | CP.PCM.PN ---
Subjective - Date & Time of Evaluation Date of Evaluation: 08/12/18 Time of Evaluation: 13:00 - Subjective Subjective: Nephrology Consultation Note: Assessment: Stable Hyponatremia likely due to hctz and contribution by valproate HTN seizure ? UTI AMS Plan sodium is stable and improved can stop iv fluids encourage po intake bp stable d/w nursing bedside Physical Examination: General Appearance: Comfortable, in no acute respiratory distress, co-operative . Vitals reviewed and noted as below Head; Atraumatic, normocephalic ENT: no thrush EYES: Eye muscles and extraocular movement intact. Sclera is anicteric. Neck; supple no jvd Lungs: Normal respiratory rate/effort. Breath sounds bilateral equal and clear Heart: Normal rate. s1s2 normal. No rub or gallop. Extremities: no edema. No varicose veins Neurological: Patient is alert, awake and oriented to person, place and time. No focal deficit. Strength bilateral appropriate and equal Skin: Warm and dry. Normal turgor. Abdomen: Abdomen is soft. Bowel sounds +. Psych: limited insight and flat affect/mood MSK: no joint tenderness or swelling. Objective - Vital Signs/Intake and Output Vital Signs (last 24 hours): Temp Pulse Resp BP Pulse Ox 98.1 F 69 17 100/65 96 08/12/18 14:25 08/12/18 14:25 08/12/18 06:00 08/12/18 14:25 08/12/18 14:25 Intake and Output: 08/12/18 08/12/18 06:59 18:59 Intake Total 540 Balance 540 - Labs Labs: 08/12/18 07:25 08/12/18 07:25 PT 13.3 SECONDS (9.4-12.5) H 08/10/18 19:20 INR 1.20 08/10/18 19:20 APTT 34.5 Seconds (26.9-38.3) 08/10/18 19:20
--- NOTE | 2018-08-12 22:52 | DS ---
HISTORY OF PRESENT ILLNESS: She is doing much better. She is feeling much better. She is in good sprits. I need physical therapy the walker first before I can discharge, I think she would do well. If she does well, I would like to discharge. She is currently on Celexa, Cogentin, Depakote, Rocephin, and IV fluids. I also like to change Rocephin to an oral antibiotic. I will discuss that with Infectious Disease, Dr. Hess and then oral medication. LABORATORY DATA: White count 5, hemoglobin 11.5, hematocrit 34.6, platelets 228. Sodium 131 much better when she came in, is corrected, BUN is 8, creatinine 0.7, GFR is greater than 60, sugar 97, calcium 8.1, total bilirubin 0.2, AST 61, ALT 42, alk phos 64, total protein 5.9. PLAN: Discharge her today if physical therapy says she could walk well. Sodium has been corrected, have to wait and see with Dr. Hess, Infectious Disease doctor, wants to change it to as far as p.o. antibiotics. We also want the physical therapist to say she is safe to go home. Virgilio Buchanan DO MTDD
== END 2018-08-12 16:21 | disposition home or self-care (01) | DRG 641 ==
LOC: ED 18:22 → ERH 19:53 → 5RSO 08-11 16:39
PROVIDERS: ADMIT Family Medicine; ATTEND Family Medicine
DX: E87.1 Hypo-osmolality and hyponatremia (principal); N39.0 Urinary tract infection, site not specified; T50.2X5A Adverse effect of carbonic-anhydrase inhibitors, benzothiadiazides and other diuretics, initial encounter; I10 Essential (primary) hypertension; F20.9 Schizophrenia, unspecified; R56.9 Unspecified convulsions